=== PATIENT | male | born 1970 | race Caucasian/White ===

== ENCOUNTER → 2025-02-18 | Outpatient (CLI) | payer SELFPAY ==
--- NOTE | 2025-02-18 12:28 | EKG12_ITS ---
Test Reason : PREOP Blood Pressure : */* mmHG Vent. Rate : 71 BPM Atrial Rate : 71 BPM P-R Int : 144 ms QRS Dur : 92 ms QT Int : 360 ms P-R-T Axes : 60 56 19 degrees QTcB Int : 391 ms Normal sinus rhythm Normal ECG Confirmed by Lev Strickland ([id number]), telegraph editor ADITI BENTLEY ([id number]) on 02/19/2025 5:50:08 AM Referred By: Ariel Au Confirmed By: Lev Strickland
== END | disposition home or self-care (01) ==
PROVIDERS: Referring Provider Urology; Visit Provider Urology
DX: Z01.810 Encounter for preprocedural cardiovascular examination (principal)
CPT/HCPCS: 93005